=== PATIENT | male | born 1990 | race Hispanic/Latino ===

== ENCOUNTER → 2018-12-07 | Day surgery (SDC) | payer OTHER ==
[2018-12-05 09:00] LABS: BASOPHILS % 0.3 % (0.0-1.0); EOSINOPHILS % 0.7 % (0.0-6.0); HEMATOCRIT 51.3 % (38.2-49.6); HEMOGLOBIN 18.4 g/dL (14.0-18.0); LYMPHOCYTES # (AUTO) 1.8 (1.0-3.2); LYMPHOCYTES % 31.3 % (18.0-39.1); MEAN CORPUSCULAR HEMOGLOBIN 31.8 pg (28-32); MEAN CORPUSCULAR HGB CONC 35.9 g/dL (31-35); MEAN CORPUSCULAR VOLUME 88.6 fL (81-99); MONOCYTES # (AUTO) 0.4 (0.2-0.8); MONOCYTES % 7.2 % (4.4-11.3); NEUTROPHILS # (AUTO) 3.5 (2.1-6.9); NEUTROPHILS % 60.3 % (38.7-80.0); PLATELET COUNT 245 x10e3/uL (140-360); RED BLOOD COUNT 5.79 x10e6/uL (4.3-5.7); RED CELL DISTRIBUTION WIDTH 11.9 % (11.7-14.4)
[~2018-12-07] MED LIST: ACETAMINOPHEN 1000 MG/100 ML IV ONE; BUPIVACAINE 0.25%/EPI 30ML SDV INJ ONE; BUPIVACAINE HCL 0.5% INJ 30 ML VIAL INJ ONE; DEXAMETHASONE SOD PHOS INJ 4 MG/ML VIAL ONE; FENTANYL CITRATE/PF 100MCG/2 ML INJ ONE; FLUCONAZOLE100 MG PO; GLYCOPYRROLATE INJ 1MG/ 5 ML SYR ONE; HYDROCODONE/APAP 7.5MG-325MG 1 EA TAB ONE; KETOROLAC TROMETHAMINE 30 MG/ML VIAL ONE; LIDOCAINE HCL 1% LOCAL INJ 20 ML VIAL ONE; LIDOCAINE HCL 2% LOCAL INJ 5 ML SDV VIAL INJ ONE; MIDAZOLAM HCL 2 MG/2 ML VIAL ONE; MORPHINE SULFATE INJ 4 MG/ML INJ 1ML ONE; ONDANSETRON HCL INJ 2MG/ML 2ML 2 MG/ML VIAL ONE; PROPOFOL IV EMULSION 10 MG/ML 20 ML VIAL ONE; ROCURONIUM BROMIDE 10 MG/ML 5ML VIAL ONE; SERTRALINE HCL50 MG PO; SEVOFLURANE INHAL SOLN 250 ML PEN BTL ONE
--- OUTSIDE RECORDS SUMMARY | 2018-12-07 08:11 | XMS REPORT ---
Author Author Admin, [place] Organization [facility] Address [address] [place] [address] Phone Allergies, Adverse Reactions, Alerts Allergy Name Reaction Description Start Date Severity Status Provider No Known Allergies Marzena Kam MD Conditions or Problems Problem Name Problem Code Onset Date Status Entry Date Provider Comment Standard Description Annotate DEPRESSIVE DISORDER, MAJOR, SINGLE EPISODE, UNSPECIFIED Active Marzena Kam MD GENERALIZED ANXIETY DISORDER Active Marzena Kam MD Generalized anxiety disorder Medication List Medication Instructions Start Date Stop Date Generic Name NDC Status Provider Patient Instruction SERTRALINE HCL 50 MG ORAL TABLET one By Mouth Every Day SERTRALINE HCL 21489325010 Active Marzena Kam MD Active BUPROPION HCL ER (XL) 150 MG ORAL TABLET EXTENDED RELEASE 24 HOUR one By Mouth Every Morning BUPROPION HCL ER (XL) 150 MG ORAL TABLET EXTENDED RELEASE 24 HOUR BUPROPION HCL Inactive BUPROPION HCL ER (XL) 150 MG ORAL TABLET EXTENDED RELEASE 24 HOUR one By Mouth Every Morning BUPROPION HCL [id number] No Longer Active Marzena Kam MD Active Vital Signs Date Name Value Unit Range Description blood pressure, diastolic 76 mm[Hg] BP williamson blood pressure, systolic 134 mm[Hg] BP sys height E&M 70 [in_us] Bdy height pulse rate E&M 64 /min Heart rate weight E&M 194 [lb_av] Weight Measured blood pressure, diastolic 74 mm[Hg] BP williamson blood pressure, systolic 129 mm[Hg] BP sys height E&M 70 [in_us] Bdy height pulse rate E&M 59 /min Heart rate weight E&M 193.38 [lb_av] Weight Measured Encounters Date Encounter Provider Code Facility 15:23:21 [facility] [employer] Est Patient Exp Problem - [id number] Marzena Kam MD [id number] [facility] Procedures Code Procedure Name Date Entry Date Standard Description [id number] Diagnostic evaluation with medical - 49507 15:07:07 [employer]
[2018-12-07 14:15] VITALS: BP 112/71
--- NOTE | 2018-12-07 20:26 | Operative Report ---
DATE OF PROCEDURE: 12/07/2018 SURGEON: Deven Melara MD PREOPERATIVE DIAGNOSES: Upper abdominal ventral hernia and right inguinal hernia. POSTOPERATIVE DIAGNOSES: Upper abdominal ventral hernia and right inguinal hernia. OPERATION PERFORMED: Repair of upper abdominal ventral hernia with mesh and repair of right inguinal hernia with large Prolene hernia system. GETTERER: MARIO Pedersen. ANESTHESIA: General. COMPLICATIONS: None. ESTIMATED BLOOD LOSS: Minimal. DESCRIPTION OF PROCEDURE: With the patient lying bed in the supine position under good general endotracheal anesthesia, the abdomen was prepped with Betadine solution and draped in the usual manner. An upper midline incision was made and was carried down through the subcutaneous tissue and immediately the hernia sac was encountered. The hernia sac was then dissected all the way around to normal fascia all the way down to the umbilicus. The hernia sac was then reduced back to the intraabdominal cavity. The preperitoneal space was then entered and a pocket was created without any difficulty. A Ventralex patch was then placed in the preperitoneal space and deployed without any problems and the hernia defect was then closed with interrupted sutures of 0 Ethibond in a transverse fashion anchoring the mesh on the way out. The subcutaneous tissue was approximated with 3-0 Vicryl and the skin was closed with clips. All layers were infiltrated on the way out with solution of 0.25% Marcaine and 1% xylocaine mixed in equal parts. A right inguinal incision was then made, carried down through the subcutaneous tissue down to the external oblique aponeurosis. The external oblique was then opened along the length of its fibers and the external inguinal ring was opened. The cord was then mobilized and retracted. Exploration of the cord did not reveal the presence of any indirect hernia sac. There was, however, a direct hernia present. The preperitoneal space was then entered through the internal ring without any difficulty and a large Prolene hernia system was placed in the preperitoneal space and the underlay patch was deployed without any problems. The overlay patch was then deployed over the floor and split inferolaterally to allow for passage of the cord. The mesh was sutured to the conjoint tendon and inguinal ligament using interrupted sutures of 2-0 Vicryl. The whole area was thoroughly irrigated, perfect hemostasis was ascertained. All layers were infiltrated on the way out with solution of 0.25% Marcaine and 1% lidocaine mixed in equal parts. The external oblique aponeurosis was closed with a running suture of 2-0 Vicryl, the subcutaneous tissue was approximated with 3-0 plain and the skin was closed with clips. A dressing was applied. The sponge, lap, and needle count was correct. The patient tolerated the procedure well and returned to the recovery room in stable condition. MD FLORES Melendrez/SHANAE /[id number]
== END | disposition home or self-care (01) ==
LOC: OR 08:09
PROVIDERS: ATTEND Surgery
DX: K43.9 Ventral hernia without obstruction or gangrene (principal); K40.90 Unilateral inguinal hernia, without obstruction or gangrene, not specified as recurrent; F41.9 Anxiety disorder, unspecified; F32.9 Major depressive disorder, single episode, unspecified; F17.200 Nicotine dependence, unspecified, uncomplicated; Z01.812 Encounter for preprocedural laboratory examination
CPT/HCPCS: 36415; 49505; 49560; 85025; C1781 ×2; J0131; J1100; J1885; J2001 ×2; J2250; J2270; J2405; J2704; J3490